=== PATIENT | female | born 1985 | race Asian ===

== ENCOUNTER 2016-12-12 14:10 | Outpatient (CLI) | payer OTHER | END 2016-12-12 18:17 | disposition home or self-care (01) | LOC: SLB 14:10 | DX: L70.0 Acne vulgaris (principal) | CPT/HCPCS: 36415; 84132-TC ==

== ENCOUNTER 2017-02-01 13:11 | Outpatient (CLI) | payer OTHER | END 2017-02-01 17:43 | disposition home or self-care (01) | LOC: SLB 13:11 | DX: L70.0 Acne vulgaris (principal) | CPT/HCPCS: 36415; 84132-TC ==